=== PATIENT | male | born 1960 | race Caucasian/White ===

== ENCOUNTER 2022-05-08 19:10 | Emergency (ER) | payer BC ==
[~2022-05-08] VITALS: Ht 170.1 cm; Wt 72.6 kg
[2022-05-08] MEDS ORDERED: CEPHALEXIN500 M1 PO (22:31)
[2022-05-08] MEDS ORDERED: Bactroban Oint22 GM T (22:31)
== END 2022-05-08 22:59 | disposition home or self-care (01) ==
LOC: ED 19:10
DX: N48.89 Other specified disorders of penis (principal)